=== PATIENT | female | born 1965 | race American Indian/Alaskan Native ===

== ENCOUNTER 2016-08-11 17:50 | Emergency (ER) | payer SELFPAY ==
[2016-08-11 19:27] LABS: Bilirubin,Urine NEG (Negative); Blood,Urine LG (Negative); Ketones,Urine 20 mg/dL (Negative); Leukocyte Esterase,Urine LG (Negative); Nitrite,Urine NEG (Negative); Urobilinogen,Urine < 2.0 mg/dL (<2.0)
[2016-08-11 19:28] LABS: WBC,Urine > 182.0 /HPF (0.0-6.0)
[2016-08-11] MEDS ORDERED: TYLENOL #3 PO ONE (21:31)
--- NOTE | 2016-08-11 21:31 | Emergency Department Report ---
HPI - General Chief Complaint: Urogenital-Female Time Seen by Provider: 08/11/16 21:18 - HPI HPI: Patient is a 50-year-old female with no medical history who presents to the ED complaining of discomfort with urination and fever 1 day. Patient states last night she states redness and high fever she measured it was 103. Patient states she began taking Tylenol for the pain and fever. Patient states mild tingling burning sensation when she urinates. Patient admits she sees tiny spots of drops of blood passed in the urine.\ Patient also needs right-sided flank pain. Patient admits nausea but no vomiting. Patient denies diarrhea, dizziness, chest pain, shortness of breath, abdominal pain, vaginal bleeding, vaginal discharge. ED Past Medical Hx - Medications Home Medications: Home Medications Medication Instructions Recorded Confirmed Last Taken Type Acetaminophen [Acetaminophen ER 650 mg PO Q8HR PRN #30 tablet.er 08/11/16 Unknown Rx TAB] Sulfamethoxazole/Trimethoprim 1 tab PO BID #14 tab 08/11/16 Unknown Rx [Bactrim 400-80 mg] ED Review of Systems ROS: Stated complaint: STOMACH PAIN/BLOOD IN URINE Other details as noted in HPI Constitutional: denies: chills, fever Eyes: denies: eye pain, eye discharge, vision change ENT: denies: ear pain, throat pain, dental pain, hearing loss, epistaxis, congestion Respiratory: denies: cough, shortness of breath, wheezing Cardiovascular: denies: chest pain, palpitations Endocrine: no symptoms reported Gastrointestinal: denies: abdominal pain, nausea, vomiting, diarrhea, constipation, hematemesis, hematochezia Genitourinary: dysuria, hematuria. denies: urgency, frequency, discharge Musculoskeletal: denies: back pain, joint swelling, arthralgia, myalgia Skin: denies: rash, lesions Neurological: denies: headache, weakness, numbness, paresthesias, confusion Psychiatric: denies: anxiety, depression Hematological/Lymphatic: denies: easy bleeding, easy bruising, swollen glands Physical Exam - Physical Exam Vital Signs: Vital Signs 08/11/16 18:47 Temperature 100.3 F H Pulse Rate 95 H Respiratory 18 Rate Blood Pressure 130/80 O2 Sat by Pulse 99 Oximetry Physical Exam: GENERAL: Alert and oriented x3, no apparent distress, Normal Gait, atraumatic. HEAD: Head is normocephalic and a-traumatic. EYES: Extra ocular muscles are intact. Pupils are equal, round, and reactive to light and accommodation. EARS: symetrical, atraumatic. gross auditory nml bilaterally. NOSE: Nose symetrical, Nontender,Nares appeared normal. MOUTH:Mouth is well hydrated and without lesions. Patent airways. NECK: Supple. Non edematous, No carotid bruits. No lymphadenopathy or thyromegaly. LUNGS: Symetrical with respiration, No wheezing, no rales or crackles, CTAB. HEART: S1, S2 present, regular rate and rhythm without murmur, no rubs, no gallops. ABDOMEN: No organomegaly was noted,Positive bowel sounds, soft, and non- distended. . Nontender to palpation on all Quadrants, NO CVA tenderness. GENITOURINARY: External genitalia without erythema, exudate or discharge. Vaginal vault is without discharge. Cervix is of normal color without lesion. Cervical os is closed. No bleeding noted. Uterus is noted to be of normal size and nontender. No cervical motion tenderness. No masses are palpated. The adnexa are without masses or tenderness. EXTREMITIES/MUSCULOSKELETAL: No cyanosis, clubbing, rash, lesions or edema. Full ROM bilaterally. UE/LE Pulses 2+ bilaterally. NEUROLOGIC: No focal Deficit, Cranial nerves II through XII are grossly intact. No loss of sensation,erg. PSYCHIATRIC: Mood is congruent with affect, denies suicidal or homicidal ideations. SKIN: Warm and dry, No lesions, No ulceration or induration present. ED Course Vital Signs 08/11/16 18:47 Temperature 100.3 F H Pulse Rate 95 H Respiratory 18 Rate Blood Pressure 130/80 O2 Sat by Pulse 99 Oximetry ED Medical Decision Making - Lab Data Result diagrams: 08/11/16 21:45 08/11/16 21:45 - Medical Decision Making 50-year-old female presents with cystitis/uncomplicated pyelonephritis ED course: Patient received 1 tablet of Tylenol 3 for pain. UA shows severely elevated CBC, CMP, GC and CT ordered. CBC shows leukocytosis. CMP shows hyponatremia, hypokalemia Low BUN and creatinine Labs within normal limits. Discussed findings with patient. Discussed with patient one dose of Rocephin in the ED prior to discharge. Vital signs stable. Patient is in no acute pain or restricted distress. Patient condition discharge home with pain relief and antibiotics. - Differential Diagnosis 1. UTI, 2. Kidney stone, 3. Pyelonephritis 4. STI Critical care attestation.: If time is entered above; I have spent that time in minutes in the direct care of this critically ill patient, excluding procedure time. ED Disposition Clinical Impression: Pyelonephritis UTI (urinary tract infection) Qualifiers: Urinary tract infection type: acute cystitis Hematuria presence: with hematuria Qualified Code(s): N30.01 - Acute cystitis with hematuria Disposition: DISCHARGED TO HOME OR SELFCARE Is pt being admited?: No Does the pt Need Aspirin: No Condition: Stable Instructions: Urinary Tract Infection in Women (ED), Acute Pyelonephritis (ED) , Dysuria (ED) Prescriptions: Acetaminophen [Acetaminophen ER TAB] 650 mg PO Q8HR PRN #30 tablet.er PRN Reason: Pain Sulfamethoxazole/Trimethoprim [Bactrim 400-80 mg] 1 tab PO BID #14 tab Referrals: PRIMARY MD MARCY [Primary Care Provider] - 3-5 Days SONNY MANE MD [Referring] - 3-5 Days KIRA DE JESUS MD [Referring] - 3-5 Days [facility] [Outside] - 3-5 Days [facility] [Outside] - 3-[address] [facility] [Outside] - 3-5 Days Forms: Accompanied Note, Work/School Release Form(ED) Time of Disposition: 22:22
[2016-08-11 22:05] LABS: Basophils % (Auto) 0.6 % (0.0-1.8); Eosinophils % (Auto) 0.2 % (0.0-4.3); Hematocrit 39.2 % (30.3-42.9); Hemoglobin 13.2 gm/dl (10.1-14.3); Mean Corpuscular HGB Conc 34 % (30-34); Mean Corpuscular Hemoglobin 29 pg (28-32); Mean Corpuscular Volume 85 fl (79-97); Platelet Count 242 K/mm3 (140-440); Red Blood Count 4.63 M/mm3 (3.65-5.03); Red Cell Distribution Width 13.4 % (13.2-15.2); White Blood Count 18.2 K/mm3 (4.5-11.0)
[2016-08-11 22:17] LABS: Alanine Aminotransferase 6 units/L (7-56); Albumin 4.2 g/dL (3.9-5); Albumin/Globulin Ratio 1.1 %; Alkaline Phosphatase 86 units/L (35-129); Anion Gap 21 mmol/L; Bilirubin,Total 0.5 mg/dL (0.1-1.2); Blood Urea Nitrogen 6 mg/dL (7-17); Calcium 9.2 mg/dL (8.4-10.2); Carbon Dioxide 26 mmol/L (22-30); Glucose 100 mg/dL (65-100); Potassium 3.2 mmol/L (3.6-5.0); Sodium 136 mmol/L (137-145)
[2016-08-11] MEDS ORDERED: ROCEPHIN IM ONE (22:20)
[2016-08-11] MEDS ORDERED: XYLOCAINE 1% MPF 5 mL INFILTRATI ONE (22:20)
[2016-08-11 22:44] VITALS: BP 128/84
== END 2016-08-11 22:45 | disposition home or self-care (01) ==
LOC: ED 17:50
DX: N12 Tubulo-interstitial nephritis, not specified as acute or chronic (principal); N30.01 Acute cystitis with hematuria; R11.0 Nausea
CPT/HCPCS: 36415; 80053; 81001; 85025; 96372; 99284; J0696

== ENCOUNTER 2018-11-12 22:23 | Emergency (ER) | payer OTHER ==
[2018-11-12 22:56] LABS: Basophils # (Auto) 0.2 K/mm3 (0.0-0.1); Basophils % (Auto) 2.1 % (0.0-1.8); Eosinophils # (Auto) 0.2 K/mm3 (0.0-0.4); Eosinophils % (Auto) 1.9 % (0.0-4.3); Hematocrit 36.1 % (30.3-42.9); Hemoglobin 12.7 gm/dl (10.1-14.3); Lymphocytes # (Auto) 3.2 K/mm3 (1.2-5.4); Lymphocytes % (Auto) 30.9 % (13.4-35.0); Mean Corpuscular HGB Conc 35 % (30-34); Mean Corpuscular Volume 88 fl (79-97); Monocytes # (Auto) 0.7 K/mm3 (0.0-0.8); Monocytes % (Auto) 6.3 % (0.0-7.3); Platelet Count 231 K/mm3 (140-440); Red Blood Count 4.09 M/mm3 (3.65-5.03); Red Cell Distribution Width 13.7 % (13.2-15.2)
[2018-11-13] MEDS ORDERED: XYLOCAINE 1% MPF 5 mL INFILTRATI ONE (01:32)
[2018-11-13] MEDS ORDERED: ROCEPHIN IM ONE (01:32)
[2018-11-13] MEDS ORDERED: IBUPROFEN PO ONE (01:32)
--- NOTE | 2018-11-13 02:02 | Emergency Department Report ---
ED Female HPI - General Chief complaint: Urogenital-Female Stated complaint: VAGINAL PAIN BLOOD IN URINE Time Seen by Provider: 11/13/18 00:32 Source: patient Mode of arrival: Ambulatory Limitations: No Limitations - History of Present Illness Initial comments: This is a 52-year-old female who presents to ED complaining of pain with urination and seen blood in her urine times started today. Patient's E she was seen by her doctor last week and was given some antibiotics for a UTI patient's issues given Keflex and to hold the antibiotics. Patient states that D she fell pain or pressure type pain with urination and noticed some blood when she wipes. She denies associated discharge, vaginal regions, vaginal pain. Patient denies history of psychosis last cycle was in 2010. - Related Data Previous Rx's Medication Instructions Recorded Last Taken Type Acetaminophen [Acetaminophen ER 650 mg PO Q8HR PRN #30 tablet.er 08/11/16 Unknown Rx TAB] Sulfamethoxazole/Trimethoprim 1 tab PO BID #14 tab 08/11/16 Unknown Rx [Bactrim 400-80 mg] Naproxen [Naprosyn] 500 mg PO BID #30 tablet 11/13/18 Unknown Rx Nitrofurantoin Woodruff/M-Cryst 100 mg PO Q12HR #14 capsule 11/13/18 Unknown Rx [Macrobid CAP] Phenazopyridine [Pyridium] 200 mg PO BID #10 tab 11/13/18 Unknown Rx Allergies Allergy/AdvReac Type Severity Reaction Status Date / Time CILLINS Allergy Hives Uncoded 08/11/16 18:47 ED Review of Systems ROS: Stated complaint: VAGINAL PAIN BLOOD IN URINE Other details as noted in HPI Comment: All other systems reviewed and negative ED Past Medical Hx - Past Medical History Previous Medical History?: No - Surgical History Past Surgical History?: No - Social History Smoking Status: Current Every Day Smoker Substance Use Type: Marijuana - Medications Home Medications: Home Medications Medication Instructions Recorded Confirmed Last Taken Type Acetaminophen [Acetaminophen ER 650 mg PO Q8HR PRN #30 tablet.er 08/11/16 Unknown Rx TAB] Sulfamethoxazole/Trimethoprim 1 tab PO BID #14 tab 08/11/16 Unknown Rx [Bactrim 400-80 mg] Naproxen [Naprosyn] 500 mg PO BID #30 tablet 11/13/18 Unknown Rx Nitrofurantoin Woodruff/M-Cryst 100 mg PO Q12HR #14 capsule 11/13/18 Unknown Rx [Macrobid CAP] Phenazopyridine [Pyridium] 200 mg PO BID #10 tab 11/13/18 Unknown Rx ED Physical Exam - General Limitations: No Limitations General appearance: alert, in no apparent distress - Head Head exam: Present: atraumatic, normocephalic - Eye Eye exam: Present: normal appearance - ENT ENT exam: Present: mucous membranes moist - Neck Neck exam: Present: normal inspection - Respiratory Respiratory exam: Present: normal lung sounds bilaterally. Absent: respiratory distress - Cardiovascular Cardiovascular Exam: Present: regular rate, normal rhythm. Absent: systolic murmur, diastolic murmur, rubs, gallop - GI/Abdominal GI/Abdominal exam: Present: soft, normal bowel sounds - Extremities Exam Extremities exam: Present: normal inspection - Back Exam Back exam: Present: normal inspection - Neurological Exam Neurological exam: Present: alert, oriented X3 - Psychiatric Psychiatric exam: Present: normal affect, normal mood - Skin Skin exam: Present: warm, dry, intact, normal color. Absent: rash ED Course Vital Signs 11/12/18 11/13/18 22:28 02:08 Temperature 98.2 F Pulse Rate 84 Respiratory 18 18 Rate Blood Pressure 120/78 O2 Sat by Pulse 96 Oximetry ED Medical Decision Making - Lab Data Result diagrams: 11/12/18 22:41 - Medical Decision Making 52-year-old female presents with urinary tract infection/acute pyelonephritis all labs within normal limits Urinalysis was admitted for bacteria, white blood count, large Patient received Rocephin in the ED. Vital signs normal she is in no acute distress. Discussed elevating hCG 5. Discussed repeat primary care physician. Patient has no history of tumors, cancer of any kind. follow up with primary care physician. Critical care attestation.: If time is entered above; I have spent that time in minutes in the direct care of this critically ill patient, excluding procedure time. ED Disposition Clinical Impression: UTI (urinary tract infection), Dysuria Disposition: DC-01 TO HOME OR SELFCARE Is pt being admited?: No Does the pt Need Aspirin: No Condition: Stable Instructions: Urinary Tract Infection in Women (ED), Dysuria (ED) Additional Instructions: Make sure to follow up with the primary care physician as discussed. Take all your medications as you've been prescribed. If you have any worsening symptoms or develop new symptoms please return to ED immediately. Prescriptions: Nitrofurantoin Woodruff/M-Cryst [Macrobid CAP] 100 mg PO Q12HR #14 capsule Naproxen [Naprosyn] 500 mg PO BID #30 tablet Phenazopyridine [Pyridium] 200 mg PO BID #10 tab Referrals: YOUSIF NIELSEN MD [Primary Care Provider] - 3-5 Days [facility] [Outside] - 3-5 Days [facility] [Outside] - 3-5 Days Forms: Accompanied Note, Work/School Release Form(ED) Time of Disposition: 02:19
[2018-11-13 02:39] LABS: Bacteria,Urine 2+ /HPF (Negative); Bilirubin,Urine NEG (Negative); Blood,Urine LG (Negative); Color,Urine Yellow (Yellow); Mucus,Urine FEW /HPF; Protein,Urine <15 mg/dL mg/dL (Negative); Urobilinogen,Urine < 2.0 mg/dL (<2.0)
[2018-11-13 06:36] VITALS: BP 140/77
== END 2018-11-13 03:40 | disposition home or self-care (01) ==
LOC: ED 22:23
DX: N39.0 Urinary tract infection, site not specified (principal)
CPT/HCPCS: 36415; 81001; 84702; 84703; 85025; 86900; 86901; 87076; 87086; 87186; 96372; 99283; J0696